=== PATIENT | male | born 1995 | race American Indian/Alaskan Native ===

== ENCOUNTER 2020-02-20 12:35 | Emergency (ER) | payer OTHER ==
[~2020-02-20] VITALS: Ht 177.8 cm; Wt 104.3 kg
[2020-02-20 12:45] VITALS: TEMP 97.3
[2020-02-20 14:02] VITALS: BP 142/63
== END 2020-02-20 14:05 | disposition home or self-care (01) ==
LOC: ED 12:35
DX: R51.9 Headache, unspecified (principal); I10 Essential (primary) hypertension; F17.210 Nicotine dependence, cigarettes, uncomplicated
CPT/HCPCS: 96372; 99282; J1885

== ENCOUNTER 2020-02-21 11:19 | Outpatient (CLI) | payer OTHER | END 2020-02-21 19:24 | disposition home or self-care (01) | LOC: CT 11:19 | PROVIDERS: ATTEND Nurse Practitioner Family | DX: G43.009 Migraine without aura, not intractable, without status migrainosus (principal) ==